=== PATIENT | male | born 1990 | race Caucasian/White ===

== ENCOUNTER 2017-01-16 18:40 | Emergency (ER) | payer SELFPAY ==
[~2017-01-16] VITALS: Ht 180.3 cm; Wt 86.2 kg
[2017-01-16 19:09] VITALS: BP_SYST 110
[2017-01-16] MEDS ORDERED: KETOROLAC TROMETHAMINE 60 MG/2 ML VIAL IM ONE (21:00)
[2017-01-16 21:09] VITALS: BP_SYST 112
== END 2017-01-16 21:09 | disposition home or self-care (01) ==
LOC: SED 18:40
DX: S63.501A Unspecified sprain of right wrist, initial encounter (principal); X50.0XXA Overexertion from strenuous movement or load, initial encounter; Y93.43 Activity, gymnastics; Y92.39 Other specified sports and athletic area as the place of occurrence of the external cause; Y99.8 Other external cause status
CPT/HCPCS: 73130; 96372; 99284; J1885